=== PATIENT | male | born 2005 | race African-American/Black ===

== ENCOUNTER 2024-07-04 18:27 | Emergency (ER) | payer MEDICAID ==
[~2024-07-04] VITALS: Ht 180.3 cm; Wt 80.0 kg
[2024-07-04 18:30] VITALS: O2SAT 98
[2024-07-04] MEDS: LEVETIRACETAM 1000MG PREMIX 100 ML IV ONE (19:05)
[2024-07-04 20:58] LABS: EOSINOPHILS % 0.2 % (0.0-5.0); HEMATOCRIT. 45.8 % (42.0-52.0); HEMOGLOBIN. 15.1 g/dL (14.0-18.0); LYMPHOCYTES % 8.2 % (20.0-50.0); MEAN CORPUSCULAR HEMOGLOBIN 28.2 pg (28.0-32.0); MEAN CORPUSCULAR HGB CONC 33.1 g/dL (31.0-37.0); MEAN CORPUSCULAR VOLUME 85.2 fL (80.0-94.0); MEAN PLATELET VOLUME 7.9 fl (7.4-10.4); MONOCYTES % 6.5 % (2.0-8.0); NEUTROPHILS % 84.1 % (40.0-76.0); PLATELET 231 x1000/uL (130-400); RED BLOOD CELL COUNT 5.37 mill/uL (4.7-6.1); RED CELL DISTRIBUTION WIDTH 13.8 % (11.6-14.6); WHITE BLOOD COUNT 12.2 x1000/uL (4.5-11.0)
[2024-07-04 21:04] LABS: CHLORIDE 105 mEq/L (98-107); POTASSIUM 4.3 mEq/L (3.5-5.1); SODIUM 142 mEq/L (136-145)
[2024-07-04 21:05] LABS: CALCIUM 9.8 mg/dL (8.7-10.4); CARBON DIOXIDE 25 mEq/L (21-32)
[2024-07-04 21:10] LABS: CREATININE 1.4 mg/dL (0.6-1.3); GLUCOSE 81 mg/dL (70-105); UREA NITROGEN BLOOD 10 mg/dL (9-23)
[2024-07-04 22:00] VITALS: BP 129/55; PULSE 79; RESP 16; TEMP 36.7; O2SAT 96
== END 2024-07-04 22:11 | disposition home or self-care (01) ==
LOC: ER 18:27
DX: G40.909 Epilepsy, unspecified, not intractable, without status epilepticus (principal)
CPT/HCPCS: 99284; 96365; 80048; 85025; 36415; J1953